=== PATIENT | male | born 1940 | race Caucasian/White ===

== ENCOUNTER 2016-04-17 10:59 | Inpatient (IN) | payer MEDICARE, BC ==
[2016-04-17] VITALS (20 sets, daily range): BP systolic 112–139; BP diastolic 60–79; PULSE 69–84; RESP 13–20; Ht 170.2 cm; Wt 75.0 kg
[~2016-04-17] VITALS: Ht 170.2 cm; Wt 75.0 kg
[~2016-04-17 10:59] MED LIST: PHENYLephrine (100 MCG/ML) 5ML SYG ONE
[2016-04-17] MEDS ORDERED: MIDAZOLAM 1 MG/ML 2 ML INJ ONE (13:27)
[2016-04-17] MEDS ORDERED: SUCCINYLCHOLINE CHLORIDE 100 MG/5 ML SYG IV ONE (13:27)
[2016-04-17] MEDS ORDERED: CEFAZOLIN 1 GM INJ ONE ×2 (13:27→16:20)
[2016-04-17] MEDS ORDERED: PROPOFOL 20 ML ONE ×3 (13:27→14:08)
[2016-04-17] MEDS ORDERED: ROCURONIUM 50 MG INJ ONE (13:27)
[2016-04-17] MEDS ORDERED: FENTAnyl 50 MCG/ML VIAL ONE ×2 (13:28→15:45)
[2016-04-17] MEDS ORDERED: BUPIVACAINE 0.25%/EPI (SDV) 30 ML INJ ONE (14:13)
[2016-04-17] MEDS ORDERED: POLYMYXIN/BACITRACIN 1L IRRIG ONE (14:14)
[2016-04-17] MEDS: D5W-0.45 NACL + KCL 20 MEQ 1,000 ML IV SCH ×2 (14:20→23:22)
--- NOTE | 2016-04-17 14:23 | HPN ---
Date/Time of Note Date/Time of Note DATE: 04/17/16 TIME: 14:23 Interval H&P Admission Note Pt. seen H&P reviewed: No system changes RICHARD BEST PA-C Apr 17, 2016 14:23
[2016-04-17] MEDS ORDERED: ZOLPIDEM 5 MG TAB PO PRN (14:30)
[2016-04-17] MEDS ORDERED: CEPASTAT LOZENGE MT PRN (14:30)
[2016-04-17] MEDS ORDERED: BISACODYL 10 MG SUPP PR PRN (14:30)
[2016-04-17] MEDS ORDERED: AL HYDROX/MG HYDROX/SIMETH 30 ML CUP PO PRN (14:30)
[2016-04-17] MEDS ORDERED: ONDANSETRON 4 MG INJ IV PRN ×2 (14:30→17:30)
[2016-04-17] MEDS ORDERED: DIPHENHYDRAMINE 50 MG INJ IV PRN (14:30)
[2016-04-17] MEDS ORDERED: NALOXONE (0.4 MG/ML) INJ IV PRN (14:30)
[2016-04-17] MEDS ORDERED: HYDROmorphONE 0.2 MG/ML PCA IV SCH (14:30)
[2016-04-17] MEDS ORDERED: HYDROmorphONE 1 MG/ML SYG IV PRN (14:30)
[2016-04-17] MEDS ORDERED: ACETAMINOPHEN 325 MG TAB PO PRN (14:30)
[2016-04-17] MEDS ORDERED: CA CHLORIDE 10% 10 ML SYRINGE ONE (14:58)
[2016-04-17] MEDS ORDERED: HEPARIN 1000 UNITS/ML 10 ML INJ ONE (14:58)
[2016-04-17] MEDS ORDERED: PHENYLephrine (100 MCG/ML) 5ML SYG ONE (15:54)
--- NOTE | 2016-04-17 16:09 | RADRPT ---
PROCEDURE: XR Lumbar Spine one view. CLINICAL INDICATION: Low back pain. Intraoperative. TECHNIQUE: Prone portable cross-table lateral. COMPARISON: No prior studies are available for comparison. FINDINGS: There are posterior neural markers overlying the lumbar spine. IMPRESSION: 1. Intraoperative imaging as described above. RPTAT: QQ .Martin Ahmadi MD, MD Date Time Electronically viewed and signed by .Martin Ahmadi MD, on 04/17/2016 16:09 .R/
--- NOTE | 2016-04-17 16:10 | RADRPT ---
PROCEDURE: XR Lumbar Spine one view. CLINICAL INDICATION: Low back pain. Intraoperative. TECHNIQUE: Prone portable cross-table lateral. COMPARISON: Prior study done earlier the same day. FINDINGS: There are posterior surgical instruments overlying multiple lumbar spine levels. IMPRESSION: 1. Intraoperative imaging as described above. RPTAT: QQ .Martin Ahmadi MD, Date Time Electronically viewed and signed by .Martin Ahmadi MD, on 04/17/2016 16:10 .R/
[2016-04-17] MEDS ORDERED: FAMOTIDINE 20 MG INJ ONE (16:13)
[2016-04-17] MEDS ORDERED: DEXAMETHASONE 4 MG/ML 1 ML INJ ONE (16:13)
[2016-04-17] MEDS ORDERED: ONDANSETRON 4 MG INJ ONE (16:13)
[2016-04-17] MEDS: SURGIFOAM POWDER 1 GM KIT ONE ×2 (16:23→16:56)
[2016-04-17] MEDS: THROMBIN 5000 UNIT VIAL ONE ×2 (16:23→16:56)
[2016-04-17] MEDS ORDERED: THROMBIN 5000 UNIT VIAL ONE ×3 (16:27→16:52)
[2016-04-17] MEDS ORDERED: GELATIN SIZE 100 SPONGE ONE (16:27)
[2016-04-17] MEDS ORDERED: SURGIFOAM POWDER 1 GM KIT ONE (16:52)
[2016-04-17] MEDS ORDERED: HYDROmorphONE (0.2 MG/ML) 10ML SYG IV PRN ×3 (17:30)
[2016-04-17] MEDS ORDERED: NEOSTIGMINE 3 MG/3 ML SYRINGE ONE (17:47)
[2016-04-17] MEDS ORDERED: GLYCOPYRROLATE 1 MG INJ ONE (17:47)
[2016-04-17] MEDS ORDERED: LIDOCAINE 2% 20 ML UROJET SYRINGE ONE (18:05)
--- NOTE | 2016-04-17 18:28 | OPPN ---
Date/Time of Note Date/Time of Note DATE: 04/17/16 TIME: 18:19 Operative/Procedure Note Pre-Operative Diagnosis L3-4, L4-5, L5-S1 lumbar spinal stenosis, L4-5 disc herniation Post-Operative Diagnosis Same Procedure L3-4 L4-5 L5-S1 central decompressive laminectomy with decompression of L3, L4, L5, S1 nerve roots, use of operative microscope, left L4-5 discectomy, lateral localizing film 2, repair of dural tear, intraoperative neuro monitoring (2.5 hours) Surgeon: DONNIE MAURICE MD Bog Worker: RICHARD BEST PA-C Anesthesiologist: BECKA MCKEON DO Findings See dictation Blood Usage/Administration Cell Saver Implants/Grafts: Not applicable Estimated blood loss: other (350) Drains 1 Specimens Spinous process and disc Complications of Procedure Dural tear Anesthesia type: general DONNIE MAURICE MD Apr 17, 2016 18:28
[2016-04-17] MEDS: MEPERIDINE 25 MG INJ IV PRN ×2 (19:08→21:09)
--- NOTE | 2016-04-17 19:14 | OPR ---
DATE OF OPERATION: 04/17/2016 PREOPERATIVE DIAGNOSES: 1. L3-4, L4-5, L5-S1 lumbar spinal stenosis with radiculopathy. 2. Left L5 disk herniation. POSTOPERATIVE DIAGNOSES: 1. L3-4, L4-5, L5-S1 lumbar spinal stenosis with radiculopathy. 2. Left L5 disk herniation. OPERATION PERFORMED: 1. L3-4, L4-L5, L5-S1 central decompressive laminectomy with decompression of L3, L4, L5, and S1 nerve roots bilaterally. 2. Left L4-5 microdiskectomy to alleviate further stenosis. 3. Use of operative microscope. 4. Lateral localizing film x2. 5. Intraoperative neuromonitoring (2-1/2 hours). 6. Dural repair with placement of Duragen and Tisseel. PRIMARY SURGEON: Manjit Avitia MD FIELD OPERATIONS SUPERVISOR: URSZULA Lopez NEED FOR FLOOR BROKER: During this spinal surgical procedure, my academic assistant was used to retract and protect the spinal nerves and dural sac. My academic assistant also employed the suction catheters to evacuate blood from the surgical field to improve visualization of the neural structures. The academic assistant was medically necessary to facilitate the completion of the surgery in a safe and expeditious manner. State of [place] regulations, as well as hospital bylaws, preclude the use of non-licensed health care personnel, such as operating room technicians, to perform these functions. ANESTHESIOLOGIST: Anthony Taveras DO FINDINGS: Neuromonitoring at the start of the case revealed left L3 amplitude down 30%, left L4 amplitude down 30%, left L5 down 40%, left S1 down 40%, right S1 amplitude down 40%. At the end of the case, nerve signals returned to normal. The patient had stenosis from L3-S1 with a left-sided disk extrusion at L4-5 adding to the stenosis. ESTIMATED BLOOD LOSS: 350 mL, 150 mL returned via Cell Saver. DRAINS: One. SPECIMENS: L3, L4, L5 spinous processes as well as L4-L5 disk were sent to Pathology. COMPLICATIONS OF PROCEDURES: A dural tear was encountered. ANESTHESIA: General. INDICATIONS FOR PROCEDURE: This is a 75-year-old gentleman with lumbosacral radiculopathy, severe spinal stenosis. He also had a left foot drop. Extruded herniation was also seen on the preoperative imaging studies. DESCRIPTION OF PROCEDURE IN DETAIL: The patient was identified in the preoperative holding area, given Ancef antibiotic, taken to the operating room, where he was successfully placed under general anesthesia by Dr. Taveras. Neuromonitoring leads were placed, sequential compressive devices were applied. Neuromonitoring was utilized during the procedure for 2-1/2 hours to include SSEP, MEP, and EMG. This was performed by Palringo. Start time was 3: 45 p.m. Closure time was 6:15 p.m. The patient was placed in the operating table in prone position over a Pio frame. All bony prominences were well padded. Back was prepped and draped in usual sterile fashion. Spinal needles were placed and lateral localizing films obtained to confirm the correct levels. Once this was confirmed, I injected the paraspinal musculature with 0.25% Marcaine and epinephrine. Incision was then made from L3 to the sacrum. The skin was incised. The dorsal fascia was incised with Bovie cautery. I then subperiosteally dissected the L3, L4, L5, and S1 lamina bilaterally. I then placed Kochers around the spinous processes and took a repeat lateral film to confirm the correct levels. Once this was confirmed, I performed a central decompressive laminectomy at L3-4, L4-5, and L5-S1. I decompressed the central canal and removed the ligamentum flavum. I decompressed the lateral recess and visualized the decompressed the L3, L4, L5, and S1 nerve roots bilaterally. The L5 signal was still down on the left and, therefore, I examined the annulus on the left. I then brought the microscope brought into the field and made an annulotomy followed by a microdiskectomy at L4-L5 on the left in order to further decompress the stenosis. Once this was done, all nerve signals returned to normal. Hemostasis was achieved with bipolar cautery, Surgifoam, Gelfoam, and thrombin. The wound was then copiously irrigated. I identified a small tear just above the L4-L5 disk space in the dura measuring approximately 1 to 2 mm. I elected to repair this with Duragen and Tisseel. Once the Tisseel had hardened, I placed a deep subfascial drain. I took the microscope off the field. I closed deep fascia with #1 Stratafix suture. I then closed subcutaneous tissue with 2-0 Vicryl stitch. A 4-0 Monocryl closure was then performed. Dermabond and sterile dressings were then applied. The patient was then awakened from anesthesia and taken to recovery room in stable condition. Lap, sponge, and instrument counts were correct x2. There were no apparent complications during the procedure aside from the dural tear. The patient will be admitted to the [facility]opedic [facility] for routine postoperative care to include pain control, neurovascular checks, antibiotics, and physical therapy. Dictated By: MANJIT TRINIDAD/ENEDELIA Conf#: [id number] DID#: [id number] MTDD
--- NOTE | 2016-04-17 19:51 | OPR ---
DATE OF OPERATION: 04/17/2016 REQUESTING PHYSICIAN: Manjit Avitia MD The patient just underwent lumbar surgery and fusion. The attempt to insert a Mendez catheter at the start of the procedure was not successful, so I was called to come and see this patient. Once the surgery was done, the patient was put back on his back, and after prepping the genital area, I tried to insert a regular Mendez catheter. It would not go in. Then I tried a 16-Jamaican coude catheter. It would not go in. Then I tried a 14-Jamaican coude catheter, and that would not go in. Then I tri ed to pass a spiral filiform, but also that was not going into the bladder. It was bouncing back. Therefore, I decided that we need to do a cystoscopy with a flexible cystoscope, and I did that, and through the cystoscope I passed a 0.035 Glidewire, and that went into the bladder after I passed th e scope in. Once the Glidewire was inside the bladder, I removed the cystoscope, and then on that, I passed a 16-Jamaican Councill catheter, and that went into the bladder without a problem, and then t he balloon was inflated with 10 mL of sterile water, and the catheter was connected to a drainage ba g. The urine was pinkish, but that will gradually clear up. So the procedure basically is a cystoscopy and also attempt to insert a Mendez catheter prior to the cystoscopy and attempt to do the urethral dilatation and finally cystoscopy and insertion of Mendez c atheter. Dictated By: MARGARITO TRINIDAD/ENEDELIA Conf#: [id number] DID#: [id number]
[2016-04-17] MEDS: CEFAZOLIN 1 GM/50 ML (PMX) 50 ML IVPB SCH (20:23)
--- NOTE | 2016-04-17 20:37 | CONS ---
DATE OF ADMISSION: 04/17/2016 DATE OF CONSULTATION: 04/17/2016 Thank you, Dr. Avitia, for asking me to participate in the medical management of this patient. REASON FOR CONSULTATION: To manage the patient's right bundle branch block pattern on EKG, and linda gn prostatic hypertrophy. HISTORY OF PRESENT ILLNESS: This 75-year-old man is now in the recovery room after undergoing a lum bar spine surgery by Dr. Avitia. The patient has a history of spinal stenosis. He was having ch ronic back pain for years and pain radiating down both legs. The patient was also developing weakne ss in his left leg, which was worse than the right. He has tried medical therapy. However, those m easures had failed. He had been given lumbar epidural steroid injections without relief. The patie nt is now postop surgery. He is lethargic, but arouses easily to verbal stimuli. Apparently, there was a problem with getting a Mendez catheter into the patient's bladder. Dr. Can performed a cy stoscopy and was able to place a catheter. PAST MEDICAL HISTORY: The patient has the following past medical history: He had an abnormal EKG p reoperatively with an incomplete right bundle branch block pattern. The patient did not have sympto ms of prostatism preoperatively. MEDICATIONS: The patient preoperatively was not taking any prescription medications. ALLERGIES: HE HAS NO KNOWN DRUG ALLERGIES. PAST SURGICAL HISTORY: Knee surgery. SOCIAL HISTORY: The patient has a [employer] business. He is . He drinks 2 beers and a high ball every day. PHYSICAL EXAMINATION: GENERAL: At this time, reveals a well-developed man in no apparent distress. VITAL SIGNS: Pulse of 82, blood pressure 125/68, O2 saturation 100% on 2 liter nasal cannula. HEENT: Head normocephalic. EYES: Extraocular muscles intact. NOSE AND MOUTH: Normal. NECK: Supple. No neck vein distention. LUNGS: Clear to auscultation. HEART: Regular rhythm. No murmurs, gallops, or rubs. ABDOMEN: Soft, nontender. No masses or megaly. EXTREMITIES: No peripheral edema. IMPRESSION: This patient is stable now after surgery. His vital signs are acceptable. His blood p ressure is well controlled. The patient has no significant past medical history other than an incom plete right bundle branch block pattern on his EKG. He was found to have difficulty urinating posto peratively and had to have a Mendez catheter placed under cystoscopy guidance. PLAN: 1. Postoperative lumbar spine surgery protocol. 2. Check labs in the morning. 3. I will follow the patient along with you. Dictated By: CORBIN MORAN MD ND/NTS Conf#: [id number] DID#: [id number] CC: DONNIE AVITIA MD;*EndCC*
[2016-04-17] MEDS: DOCUSATE SODIUM 100 MG CAP PO SCH (21:49)
[2016-04-17] MEDS: TAMSULOSIN (SR) 0.4 MG CAP PO SCH (21:49)
[2016-04-18] MEDS: CEFAZOLIN 1 GM/50 ML (PMX) 50 ML IVPB SCH ×2 (04:09→12:05)
[2016-04-18 05:20] LABS: BASOPHILS % 0.1 % (0.0-2.0); HEMATOCRIT 43.8 % (42.0-52.0); HEMOGLOBIN 15.1 g/dl (14.0-18.0); LYMPHOCYTES % 8.2 % (15.0-51.0); MEAN CORPUSCULAR HEMOGLOBIN 32.8 pg (29.0-33.0); MEAN CORPUSCULAR HGB CONC 34.6 g/dl (32.0-37.0); MEAN CORPUSCULAR VOLUME 94.8 fl (82.0-101.0); MEAN PLATELET VOLUME 8.5 fl (7.4-10.4); MONOCYTE # 0.8 10^3/ul (0.3-0.9); NEUTROPHILS % 84.7 % (39.0-77.0); PLATELET COUNT 166 10^3/UL (140-440); RED BLOOD COUNT 4.62 10^6/ul (4.70-6.10); RED CELL DISTRIBUTION WIDTH 12.2 % (11.5-14.5); UNCORRECTED WBC 11.8 10^3/ul (4.8-10.8); WHITE BLOOD COUNT 11.8 10^3/ul (4.8-10.8)
[2016-04-18 05:25] LABS: POTASSIUM 4.3 mmol/L (3.5-5.1)
[2016-04-18 05:28] LABS: CALCIUM 8.3 mg/dl (8.4-10.2); CREATININE 0.72 mg/dl (0.61-1.24)
[2016-04-18 05:29] LABS: MAGNESIUM 1.7 mg/dl (1.7-2.5)
[2016-04-18 05:32] LABS: CONDITION 1
[2016-04-18 07:43] VITALS: BP 128/67; RESP 20
[2016-04-18] MEDS ORDERED: INFLUENZA VIRUS VACCINE 0.5 ML SYG IM* ONE (09:00)
[2016-04-18] MEDS: DOCUSATE SODIUM 100 MG CAP PO SCH ×2 (09:03→20:41)
[2016-04-18] MEDS: CYCLOBENZAPRINE 10 MG TAB PO PRN ×3 (09:03→23:28)
--- NOTE | 2016-04-18 10:04 | PN ---
DATE: 04/18/2016 SUBJECTIVE: Urinary retention. The patient is status post back surgery for lumbar stenosis and dif ficulty inserting a catheter by the nursing staff and then patient underwent cystoscopy and insertio n of the catheter. The patient now is awake and alert. Therefore, I had a conversation with him an d he was able to ask him questions, so as it happens that this patient has had 3 laser surgery on hi s prostate going back to about 5 years and prior to that at one time he did have a transrectal ultra sound biopsy of the prostate, which was negative also. The first laser surgery he had to have a Fole y catheter for 1 month and then after that he was able to urinate, but required 2 other laser surger ies by his urologist to open his channel. He said that he does have a large prostate and prior to t he surgery now he has been urinating about once a night. During the day he voids every hour. He do es drink a lot of water. There is no dysuria and no hematuria. He also mentioned that years ago he did have hematospermia and he did see a urologist who scoped him and found a small bladder tumor wh ich he resected and then he had cystoscopies every 3 months for 1 year and every 6 months after that and then every year and in the past 4 or 5 years that he has been following with Dr. Darby and Dr. Epstein in [place]. No recurrence of bladder tumor was noted. The patient was not on any medicatio n for the prostate. PHYSICAL EXAMINATION: VITAL SIGNS: Temperature is 98.2, respiration is 18, blood pressure 112/65. ABDOMEN: Soft. There is no abdominal mass palpable. He does have a right inguinal hernia and the external genitalia are normal and the Mendez catheter is draining clear urine. LABORATORY DATA: CBC shows a white count of 11.8, hemoglobin 15.1, hematocrit 43.8. BUN is 13, cre atinine 0.72. Electrolytes are normal. Urine culture is pending. IMPRESSION: Benign prostatic hypertrophy, history of multiple surgical procedures on the prostate, at least 3 laser treatments, and history of bladder tumor that was resected many years ago and no re currence since. History of prostate biopsy in the past and that was negative. RECOMMENDATION: We shall leave the Mendez catheter in until tomorrow, to make sure that the patient is able to ambulate and also is taking less pain medications, and then we will take the catheter out and see if he is able to urinate. I will follow his urological problem. Dictated By: MARGARITO TRINIDAD/ENEDELIA Conf#: [id number] DID#: [id number]
--- NOTE | 2016-04-18 11:03 | PN ---
Date/Time of Note Date/Time of Note DATE: 04/18/16 TIME: 10:54 Assessment/Plan Lines/Catheters IV Catheter Type (from Nrsg): Peripheral IV Carey in Place (from Nrsg): Yes Assessment/Plan Assessment/Plan Ambulate, continue PT pain control Plan to D/C [employer] tomorrow AM per orders Plan to D/C carey per Dr. Can's orders Subjective 24 Hr Interval Summary Patient complains of low back discomfort Reports improvement in leg symptoms and weakness Denies headache, neck pain, sensitivity to light Exam/Review of Systems Vital Signs Vitals Vital Signs Date Time Temp Pulse Resp B/P Pulse Ox O2 Delivery O2 Flow Rate FiO2 04/18/16 08:00 18 04/18/16 07:43 97.3 85 128/67 95 04/17/16 19:45 Room Air 04/17/16 19:05 2.0 Intake and Output 04/17/16 04/17/16 04/18/16 15:00 23:00 07:00 Intake Total 2150 ml 1600 ml Output Total 460 ml 415 ml Balance 1690 ml 1185 ml Exam Free Text/Dictation Left TA, EHL strength now 3+/5 Right TA, EHL strength full dressing C/D/I Results Result Diagram: 04/18/16 0454 04/18/16 0454 RICHARD BEST PA-C Apr 18, 2016 11:02
[2016-04-18] MEDS: D5W-0.45 NACL + KCL 20 MEQ 1,000 ML IV SCH ×2 (12:05→20:20)
--- NOTE | 2016-04-18 13:31 | CONS ---
Date/Time of Note Date/Time of Note DATE: 04/18/16 TIME: 13:27 Assessment/Plan Assessment/Plan Chief Complaint/Hosp Course 1. He is 1 day post op lumbar spine surgery . He is up walking with PT . 2. continue current medication and PT . 3. He has a Mendez catheter . Problems: Consultation Date/Type/Reason Admit Date/Time Apr 17, 2016 at 10:59 Initial Consult Date 24 HR Interval Summary Free Text/Dictation he is up walking with PT and doing well . Constitutional: improved, no complaints Exam/Review of Systems Vital Signs Vitals Vital Signs Date Time Temp Pulse Resp B/P Pulse Ox O2 Delivery O2 Flow Rate FiO2 04/18/16 12:00 18 04/18/16 07:43 97.3 85 128/67 95 04/17/16 19:45 Room Air 04/17/16 19:05 2.0 Intake and Output 04/17/16 04/17/16 04/18/16 15:00 23:00 07:00 Intake Total 2150 ml 1600 ml Output Total 460 ml 415 ml Balance 1690 ml 1185 ml Exam Constitutional: alert, oriented, well developed Psych: nl mood/affect, no complaints Respiratory: clear to auscultation, normal air movement Cardiovascular: regular rate and rhythm Musculoskeletal: nl extremities to inspection Results Result Diagram: 04/18/16 0454 04/18/16 0454 Results 24 hrs Laboratory Tests Test 04/18/16 04:54 Anion Gap 14 Basophils # 0.0 Basophils % 0.1 Blood Urea Nitrogen 13 Calcium Level 8.3 L Carbon Dioxide Level 27 Chloride Level 104 Creatinine 0.72 Eosinophils # 0.0 Eosinophils % 0.0 Glucose Level 130 Hematocrit 43.8 Hemoglobin 15.1 Lymphocytes # 1.0 Lymphocytes % 8.2 L Magnesium Level 1.7 Mean Corpuscular Hemoglobin 32.8 Mean Corpuscular Hemoglobin Concent 34.6 Mean Corpuscular Volume 94.8 Mean Platelet Volume 8.5 Monocytes # 0.8 Monocytes % 7.0 Neutrophils # 10.0 H Neutrophils % 84.7 H Nucleated Red Blood Cells # 0.0 Nucleated Red Blood Cells % 0.0 Platelet Count 166 Potassium Level 4.3 Red Blood Count 4.62 L Red Cell Distribution Width 12.2 Sodium Level 141 White Blood Count 11.8 H Medications Medications Current Medications Potassium Chloride/Dextrose/ Sod Cl (D5-1/2ns + KCl 20 Meq) 1,000 ml @ 100 mls/ hr Q10H IV Last administered on 04/18/16 12:05; Admin Dose 100 MLS/HR; Start 04/17/16 at 14:20 Oxycodone/ Acetaminophen (Endocet (10/ 325)) 1 tab Q4H PRN PO PAIN LEVEL 1-5; Start 04/19/16 at 10:00 Oxycodone/ Acetaminophen (Endocet (10/ 325)) 2 tab Q4H PRN PO PAIN LEVEL 6-10; Start 04/19/16 at 10:00 Hydromorphone HCl (Dilaudid) 0.2 mg Q1H PRN IV BREAKTHROUGH PAIN; Start at 14:30 Ondansetron HCl (Zofran Inj) 4 mg Q6H PRN IV NAUSEA AND/OR VOMITING; Start 01/22 at 14:30 Bisacodyl (Dulcolax Supp) 10 mg DAILY PRN [place] CONSTIPATION; Start 04/17/16 at 14 :30 Docusate Sodium (Colace) 100 mg BID PO Last administered on 04/18/16 09:03; Admin Dose 100 MG; Start 04/17/16 at 21:00 Al Hydrox/Mg Hydrox/Simethicone (Mag-Al Plus) 15 ml Q6H PRN PO CONSTIPATION/ DYSPEPSIA; Start 04/17/16 at 14:30 Acetaminophen (Tylenol Tab) 650 mg Q4H PRN PO [place] OR TEMP GREATER THAN 101.3F; Start 04/17/16 at 14:30 Cyclobenzaprine HCl (Flexeril) 10 mg TID PRN PO MUSCLE SPASMS Last administered on 04/18/16 09:03; Admin Dose 10 MG; Start 04/17/16 at 14:30 Phenol (Cepastat Lozenge) 1 lozenge PRN PRN [place] SORE THROAT; Start 04/17/16 at 14:30 Diphenhydramine HCl (Benadryl) 25 mg Q6H PRN IV ITCHING; Start 04/17/16 at 14: 30 Naloxone HCl (Narcan) 0.2 mg Q2M PRN IV RR 8 BREATHS/MIN OR LESS; Start at 14:30 Hydromorphone HCl (Dilaudid GLUE MOUNTER OPERATOR) GLUE MOUNTER OPERATOR to be started in PACU Q4PCA IV Last administered on 04/17/16 19:14; Admin Dose 6 MG; Start 04/17/16 at 14:30; Stop 04/19/16 at 10:00 Miscellaneous Information 1. Hold GLUE MOUNTER OPERATOR at 1,000... GLUE MOUNTER OPERATOR IV ; Start 04/17/16 at 14: 30; Stop 04/19/16 at 10:00 Tamsulosin HCl (Flomax) 0.4 mg HS PO Last administered on 04/17/16 21:49; Admin Dose 0.4 MG; Start 04/17/16 at 21:00 Influenza Virus Vaccine (Fluzone) 0.5 ml ONCE ONCE IM* ; Start 04/19/16 at 12:00 ; Stop 04/19/16 at 12:01 CORBIN MORAN MD Apr 18, 2016 13:31
[2016-04-18] MEDS ORDERED: MAGNESIUM SULFATE 2 GM/50 ML 50 ML IVPB ONE (15:00)
[2016-04-18] MEDS: TAMSULOSIN (SR) 0.4 MG CAP PO SCH (20:41)
[2016-04-18 20:43] VITALS: BP 122/57; RESP 19
[2016-04-19 05:21] LABS: BASOPHILS % 0.1 % (0.0-2.0); EOSINOPHILS % 0.4 % (0.0-7.0); HEMATOCRIT 41.1 % (42.0-52.0); HEMOGLOBIN 14.4 g/dl (14.0-18.0); LYMPHOCYTES # 1.2 10^3/ul (0.8-2.9); LYMPHOCYTES % 10.3 % (15.0-51.0); MEAN CORPUSCULAR HEMOGLOBIN 33.1 pg (29.0-33.0); MEAN CORPUSCULAR HGB CONC 35.1 g/dl (32.0-37.0); MEAN CORPUSCULAR VOLUME 94.3 fl (82.0-101.0); MEAN PLATELET VOLUME 8.6 fl (7.4-10.4); MONOCYTE # 1.1 10^3/ul (0.3-0.9); MONOCYTES % 9.6 % (0.0-11.0); NEUTROPHIL # 9.3 10^3/ul (1.6-7.5); NEUTROPHILS % 79.6 % (39.0-77.0); PLATELET COUNT 139 10^3/UL (140-440); RED BLOOD COUNT 4.36 10^6/ul (4.70-6.10); RED CELL DISTRIBUTION WIDTH 12.2 % (11.5-14.5); UNCORRECTED WBC 11.7 10^3/ul (4.8-10.8); WHITE BLOOD COUNT 11.7 10^3/ul (4.8-10.8)
[2016-04-19 05:32] LABS: POTASSIUM 3.6 mmol/L (3.5-5.1)
[2016-04-19 05:34] LABS: CREATININE 0.61 mg/dl (0.61-1.24)
[2016-04-19 05:35] LABS: CALCIUM 8.1 mg/dl (8.4-10.2); MAGNESIUM 1.8 mg/dl (1.7-2.5)
[2016-04-19 05:37] LABS: CONDITION 1
[2016-04-19] MEDS: D5W-0.45 NACL + KCL 20 MEQ 1,000 ML IV SCH ×2 (06:20→16:20)
[2016-04-19 07:38] VITALS: BP 152/79; RESP 18
[2016-04-19] MEDS: DOCUSATE SODIUM 100 MG CAP PO SCH (09:34)
[2016-04-19] MEDS ORDERED: OXYCODONE/ACETAMINOPHEN (10/325) TAB PO PRN ×2 (10:00)
[2016-04-19] MEDS ORDERED: INFLUENZA VIRUS VACCINE 0.5 ML SYG IM* ONE (12:00)
--- NOTE | 2016-04-19 13:37 | CONS ---
Date/Time of Note Date/Time of Note DATE: 04/19/16 TIME: 13:35 Assessment/Plan Assessment/Plan Chief Complaint/Hosp Course 1. He is 2 days post op lumbar spine surgery . He is up walking with PT . 2. continue current medication and PT . 3. The Mendez catheter has been removed. He has not voided yet today. He is on Flomax daily.. Problems: Consultation Date/Type/Reason Admit Date/Time Apr 17, 2016 at 10:59 Type of Consultation: medicine 24 HR Interval Summary Free Text/Dictation The patient is feeling better today. He is having less low back pain. His Mendez catheter was removed this morning. He has not voided yet today. Constitutional: improved, no complaints Exam/Review of Systems Vital Signs Vitals Vital Signs Date Time Temp Pulse Resp B/P Pulse Ox O2 Delivery O2 Flow Rate FiO2 04/19/16 10:30 16 04/19/16 07:38 98.0 94 152/79 90 04/17/16 19:45 Room Air 04/17/16 19:05 2.0 Intake and Output 04/18/16 04/18/16 04/19/16 15:00 23:00 07:00 Intake Total 1050 ml 1910 ml 1880 ml Output Total 1250 ml 1060 ml Balance 1050 ml 660 ml 820 ml Exam Constitutional: alert, oriented, well developed Respiratory: clear to auscultation, normal air movement Cardiovascular: nl pulses, regular rate and rhythm Musculoskeletal: nl extremities to inspection Results Result Diagram: 04/19/16 0420 04/19/16 0420 Results 24 hrs Laboratory Tests Test 04/19/16 04:20 Anion Gap 13 Basophils # 0.0 Basophils % 0.1 Blood Urea Nitrogen 9 Calcium Level 8.1 L Carbon Dioxide Level 28 Chloride Level 101 Creatinine 0.61 Eosinophils # 0.0 Eosinophils % 0.4 Glucose Level 110 Hematocrit 41.1 L Hemoglobin 14.4 Lymphocytes # 1.2 Lymphocytes % 10.3 L Magnesium Level 1.8 Mean Corpuscular Hemoglobin 33.1 H Mean Corpuscular Hemoglobin Concent 35.1 Mean Corpuscular Volume 94.3 Mean Platelet Volume 8.6 Monocytes # 1.1 H Monocytes % 9.6 Neutrophils # 9.3 H Neutrophils % 79.6 H Nucleated Red Blood Cells # 0.0 Nucleated Red Blood Cells % 0.0 Platelet Count 139 L Potassium Level 3.6 Red Blood Count 4.36 L Red Cell Distribution Width 12.2 Sodium Level 138 White Blood Count 11.7 H Medications Medications Current Medications Potassium Chloride/Dextrose/ Sod Cl (D5-1/2ns + KCl 20 Meq) 1,000 ml @ 100 mls/ hr Q10H IV Last administered on 04/18/16 12:05; Admin Dose 100 MLS/HR; Start 04/17/16 at 14:20 Oxycodone/ Acetaminophen (Endocet (10/ 325)) 1 tab Q4H PRN PO PAIN LEVEL 1-5; Start 04/19/16 at 10:00 Oxycodone/ Acetaminophen (Endocet (10/ 325)) 2 tab Q4H PRN PO PAIN LEVEL 6-10 Last administered on 04/19/16 10:24; Admin Dose 2 TAB; Start 04/19/16 at 10:00 Hydromorphone HCl (Dilaudid) 0.2 mg Q1H PRN IV BREAKTHROUGH PAIN; Start at 14:30 Ondansetron HCl (Zofran Inj) 4 mg Q6H PRN IV NAUSEA AND/OR VOMITING; Start 01/22 at 14:30 Bisacodyl (Dulcolax Supp) [address] CONSTIPATION; Start 04/17/16 at 14 :30 Docusate Sodium (Colace) 100 mg BID PO Last administered on 04/19/16 09:34; Admin Dose 100 MG; Start 04/17/16 at 21:00 Al Hydrox/Mg Hydrox/Simethicone (Mag-Al Plus) 15 ml Q6H PRN PO CONSTIPATION/ DYSPEPSIA; Start 04/17/16 at 14:30 Acetaminophen (Tylenol Tab) 650 mg Q4H PRN PO [place] OR TEMP GREATER THAN 101.3F; Start 04/17/16 at 14:30 Cyclobenzaprine HCl (Flexeril) 10 mg TID PRN PO MUSCLE SPASMS Last administered on 04/18/16 23:28; Admin Dose 10 MG; Start 04/17/16 at 14:30 Phenol (Cepastat Lozenge) 1 lozenge PRN PRN [place] SORE THROAT; Start 04/17/16 at 14:30 Diphenhydramine HCl (Benadryl) 25 mg Q6H PRN IV ITCHING; Start 04/17/16 at 14: 30 Naloxone HCl (Narcan) 0.2 mg Q2M PRN IV RR 8 BREATHS/MIN OR LESS; Start at 14:30 Tamsulosin HCl (Flomax) 0.4 mg HS PO Last administered on 04/18/16t 20:41; Admin Dose 0.4 MG; Start 04/17/16 at 21:00 CORBIN MORAN MD Apr 19, 2016 13:37
--- NOTE | 2016-04-19 17:54 | PN ---
DATE: 04/19/2016 SUBJECTIVE: Urinary retention and urethral stricture. The patient does have a history of: A laser prostate surgery at least 2 times and at one time had to have a catheter for 1 full month. The pat [place] had to undergo a cystoscopy for insertion of a catheter and that was done, and then this mornin g his urine is clear. Therefore, the Mendez catheter was removed and the patient has since voided 2 to 3 times. He denies any difficulty urinating and he is denying any pain with urination and he is ready to go home. OBJECTIVE: VITAL SIGNS: Temperature is 98.0, pulse is 94, respirations 16, blood pressure 152/79. ABDOMEN: Soft. Again, the Mendez catheter was removed. He has voided multiple times and the postvoid residual is about 150 mL. The urine culture is no jessica wth after 48 hours. The CBC shows a white count of 11.7, hemoglobin 14.4, hematocrit is 41.1, BUN is 9, creatinine 0.61. Electrolytes are normal. IMPRESSION: The patient is voiding well. From a urological standpoint, the patient may be discharg [facility] and he will follow up with his urologist in [place] and he will have him check on his pr ostate again and in the meantime, he should continue the tamsulosin to try to help him empty his yuan dder better. Dictated By: MARGARITO TRINIDAD/ENEDELIA Conf#: [id number] DID#: [id number]
--- NOTE | 2016-04-19 21:44 | DS ---
DATE OF ADMISSION: 04/17/2016 DATE OF DISCHARGE: 04/19/2016 ADMITTING DIAGNOSIS: Lumbar stenosis. DISCHARGE DIAGNOSIS: Lumbar stenosis. PROCEDURE: The patient taken to the operating room on 04/17/2016 underwent lumbar decompression. HOSPITAL COURSE: The patient was admitted to the orthopedic [facility] after undergoing above procedure. His postoperative course was uncomplicated. By postop day 2, he was deemed stable for discharge. Followup arranged with the undersigned. Dictated By: DONNIE TRINIDAD/ENEDELIA Conf#: [id number] DID#: [id number]
== END 2016-04-19 17:45 | disposition home or self-care (01) | DRG 520 ==
LOC: REC 10:59 → MS1 20:00
PROVIDERS: ADMIT Specialist; ATTEND Specialist
PROC: 4A11X4G Monitoring of Peripheral Nervous Electrical Activity, Intraoperative, External Approach (ICD-10-PCS; 2016-04-17)
PROC: 0T9B80Z Drainage of Bladder with Drainage Device, Via Natural or Artificial Opening Endoscopic (ICD-10-PCS; 2016-04-17)
PROC: 0SB20ZZ Excision of Lumbar Vertebral Disc, Open Approach (ICD-10-PCS; principal; 2016-04-17 14:30)
PROC: 01NB0ZZ Release Lumbar Nerve, Open Approach (ICD-10-PCS; 2016-04-17 14:30)
DX: M48.06 Spinal stenosis, lumbar region (principal); K45.8 Other specified abdominal hernia without obstruction or gangrene; M54.16 Radiculopathy, lumbar region; N40.0 Benign prostatic hyperplasia without lower urinary tract symptoms; R33.9 Retention of urine, unspecified; Z85.51 Personal history of malignant neoplasm of bladder
CPT/HCPCS: 72020; 80048; 83735; 85025; 86999; 87086; 88304; 88311; 90686; 97116; 97162; 97530; J0330; J0690; J1100; J1170; J1644; J2175; J2250; J2370; J2405; J2710; J3010; J3475; J3480